=== PATIENT | male | born 1950 | race Hispanic/Latino ===

== ENCOUNTER 2021-03-19 08:41 | Emergency (ER) | payer OTHER, BC ==
[~2021-03-19] VITALS: Ht 165.1 cm; Wt 81.8 kg
[2021-03-19] MEDS ORDERED: TORADOL PO (13:49)
[2021-03-19] MEDS ORDERED: FLEXERIL5 M1 PO (13:49)
[2021-03-19 13:55] VITALS: BP 155/82
== END 2021-03-19 13:55 | disposition home or self-care (01) | DRG 605 ==
LOC: ED 08:41
DX: S30.1XXA Contusion of abdominal wall, initial encounter (principal); S29.012A Strain of muscle and tendon of back wall of thorax, initial encounter; S39.012A Strain of muscle, fascia and tendon of lower back, initial encounter; S20.219A Contusion of unspecified front wall of thorax, initial encounter; M51.34 Other intervertebral disc degeneration, thoracic region; M51.36 Other intervertebral disc degeneration, lumbar region; I10 Essential (primary) hypertension; V49.9XXA Car occupant (driver) (passenger) injured in unspecified traffic accident, initial encounter

== ENCOUNTER 2021-04-05 08:14 | Emergency (ER) | payer OTHER, BC ==
[~2021-04-05] VITALS: Ht 165.1 cm; Wt 70.0 kg
[~2021-04-05 08:14] MED LIST: FLEXERIL5 M1 PO; TORADOL PO
[2021-04-05 09:54] LABS: URINE BILIRUBIN - DIPSTICK NEGATIVE (NEGATIVE); URINE BLOOD DIPSTICK NEGATIVE (NEGATIVE); URINE COLOR YELLOW; URINE GLUCOSE - DIPSTICK NEGATIVE (NEGATIVE); URINE KETONE NEGATIVE (NEGATIVE); URINE LEUK ESTERASE NEGATIVE (NEGATIVE); URINE PH 5.5 (4.5-8.0); URINE PROTEIN - DIPSTICK NEGATIVE (NEG-TRACE); URINE UROBILINOGEN - DIPSTICK 0.2 E.U./dL (0.2)
[2021-04-05 09:55] LABS: URINE NITRITE - DIPSTICK NEGATIVE (Negative)
[2021-04-05 10:03] LABS: HEMATOCRIT 34.3 % (39.0-50.0); HEMOGLOBIN 11.6 g/dl (14.0-18.0); IMMATURE GRANULOCYTES 0.4 % (0.0-5.0); MEAN CELL VOLUME 94.5 fL CALC (80.0-100.0); MEAN CORPUSCULAR HGB CONC 33.8 g/dL CAL (32.0-36.0); NEUT# 4.9 thou/uL (1.82-7.42); RED BLOOD COUNT 3.63 mill/uL (4.70-6.10); RED CELL DISTRI WIDTH 13.1 % (11.5-15.5)
[2021-04-05 10:19] LABS: ALBUMIN 4.7 g/dL (3.2-5.0); BILIRUBIN, TOTAL 0.6 mg/dL (0.0-1.4); CREATININE 1.4 mg/dL (0.7-1.3); POTASSIUM 4.6 mmol/l (3.5-5.1); TOTAL PROTEIN 8.2 g/dL (6.3-8.2)
[2021-04-05] MEDS ORDERED: TRAMADOL HYDROC50 M1 PO (10:44)
[2021-04-05 11:23] VITALS: BP 136/66
== END 2021-04-05 12:00 | disposition home or self-care (01) | DRG 552 ==
LOC: ED 08:14
PROVIDERS: Family Medicine
DX: S32.020A Wedge compression fracture of second lumbar vertebra, initial encounter for closed fracture (principal); K59.00 Constipation, unspecified; I10 Essential (primary) hypertension; X58.XXXA Exposure to other specified factors, initial encounter

== ENCOUNTER 2022-03-11 08:30 | Day surgery (SDC) | payer MEDICARE ==
[~2022-03-11] VITALS: Ht 165.1 cm; Wt 77.1 kg
[~2022-03-11 08:30] MED LIST changes: +HYDROCHLOROTHIA50 MG PO; +LOSARTAN POTAS100 MG PO; +TRAMADOL HYDROC50 M1 PO
[2022-03-11 12:12] VITALS: BP 134/80
== END 2022-03-11 12:22 | disposition home or self-care (01) ==
LOC: ENDO 08:30 → ORM 10:55 → ENDO 10:55
PROVIDERS: ATTEND Surgery
PROC: 0DBN8ZX Excision of Sigmoid Colon, Via Natural or Artificial Opening Endoscopic, Diagnostic (ICD-10-PCS; principal; 2022-03-11)
DX: D12.5 Benign neoplasm of sigmoid colon (principal); K64.8 Other hemorrhoids; I10 Essential (primary) hypertension